=== PATIENT | female | born 1985 | race Hispanic/Latino ===

== ENCOUNTER 2017-12-12 20:01 | Emergency (ER) | payer OTHER ==
[2017-12-12 20:19] VITALS: TEMP 98.1
--- NOTE | 2017-12-12 20:40 | ED PDOC ---
Arrival/HPI - General Chief Complaint: High Blood Pressure Time Seen by Provider: 12/12/17 20:03 Historian: Patient - History of Present Illness Narrative History of Present Illness (Text): 12/12/17 20:33 32yo female with history of Preclamsia present with complaint of elevated BP at home. The by the beside states patient delivered through emergency C- section 4 days ago, secondary to Preclampsia. The states she was DC home with BP of 150's yesterday and it was 160 and 180 at home today. Notes that she also have edema of her b/l foot, which she had prior to delivery. Notes that patient came to the Emergency department for evaluation. Patient was not placed on any antihypertensive. She denies headache, dizziness, nausea, vomiting, visual changes, focal weakness, any other complaint. Past Medical History - Provider Review Nursing Documentation Reviewed: Yes - Psychiatric Hx Substance Use: No Family/Social History - Physician Review Nursing Documentation Reviewed: Yes Family/Social History: Unknown Family HX Smoking Status: n Hx Alcohol Use: No Hx Substance Use: No Allergies/Home Meds Allergies/Adverse Reactions: Allergies No Known Allergies Allergy (Verified 12/12/17 20:15) Home Medications: Home Meds Medication Instructions Recorded Confirmed No Known Home Med 12/12/17 12/12/17 Review of Systems - Physician Review All systems were reviewed & negative as marked: Yes - Review of Systems Constitutional: Normal, Other (Elevated BP) Eyes: Normal ENT: Normal Respiratory: Normal Cardiovascular: Normal Gastrointestinal: Normal Genitourinary Female: Normal Musculoskeletal: Normal Skin: Normal Neurological: Normal Endocrine: Normal Hemo/Lymphatic: Normal Psychiatric: Normal Physical Exam Vital Signs Reviewed: Yes Vital Signs Temp Pulse Resp BP Pulse Ox 12/12/17 21:36 58 L 14 156/92 H 100 12/12/17 20:10 98.1 F 61 18 156/84 H 97 Temperature: Afebrile Blood Pressure: Normal Pulse: Regular Respiratory Rate: Normal Appearance: Positive for: Well-Appearing, Non-Toxic, Comfortable Pain Distress: None Mental Status: Positive for: Alert and Oriented X 3 - Systems Exam Head: Present: Atraumatic, Normocephalic Pupils: Present: PERRL Extroacular Muscles: Present: EOMI Conjunctiva: Present: Normal Mouth: Present: Moist Mucous Membranes Neck: Present: Normal Range of Motion Respiratory/Chest: Present: Clear to Auscultation, Good Air Exchange. No: Respiratory Distress, Accessory Muscle Use Cardiovascular: Present: Regular Rate and Rhythm, Normal S1, S2. No: Murmurs Abdomen: Present: Normal Bowel Sounds. No: Tenderness, Distention, Peritoneal Signs Back: Present: Normal Inspection Upper Extremity: Present: Normal Inspection. No: Cyanosis, Edema Lower Extremity: Present: Edema (3+ bipedal edema) Neurological: Present: GCS=15, CN II-XII Intact, Speech Normal Skin: Present: Warm, Dry, Normal Color. No: Rashes Psychiatric: Present: Alert, Oriented x 3, Normal Insight, Normal Concentration Medical Decision Making ED Course and Treatment: 12/12/17 21:17 PT in Emergency department for stated history. Her BP on re evaluation is 156/92 Urinalysis show protein of 30. this result was DW the pt. the states the protein was greater than 300 when she had the preclampsia. She was offered antihypertensive, but she declined the medication. Stating she don't have any symptoms. She was Advised to reduce salt intake and keep legs elevated. She was advised to f/u with her PMD. States she will she her PMD on Thursday. - Lab Interpretations Lab Results: Lab Results 12/12/17 20:52: Urine Color Yellow, Urine Appearance Clear, Urine pH 6.0, Ur Specific [place] 1.020, Urine Protein 30 H, Urine Glucose (UA) Negative, Urine Ketones Negative, Urine Blood Large H, Urine Nitrate Negative, Urine Bilirubin Negative, Urine Urobilinogen 0.2, Ur Leukocyte Esterase Negative, Urine RBC 20 - 25, Urine WBC 1 - 3, Ur Epithelial Cells 4 - 5, Amorphous Sediment Few, Urine Bacteria Many, Urine Other Fiber Disposition/Present on Arrival - Present on Arrival Any Indicators Present on Arrival: No History of DVT/PE: No History of Uncontrolled Diabetes: No Urinary Catheter: No History of Decub. Ulcer: No History Surgical Site Infection Following: None - Disposition Have Diagnosis and Disposition been Completed?: Yes Diagnosis: Hypertension Disposition: HOME/ ROUTINE Disposition Time: 21:30 Patient Plan: Discharge Condition: STABLE Discharge Instructions (ExitCare): High Blood Pressure in Adults, Low Salt Diet Additional Instructions: Follow up with your Doctor on Thursday Return to Emergency department for any new or worsening symptoms Referrals: Leigh Stone MD [Primary Care Provider] - Follow up with primary Forms: [employer] (Croatian)
[2017-12-12 21:06] LABS: URINE BILIRUBIN NEGATIVE (NEGATIVE); URINE BLOOD LARGE (NEGATIVE); URINE GLUCOSE (UA) NEGATIVE (NEGATIVE); URINE LEUKOCYTE ESTERASE NEGATIVE Leu/uL (NEGATIVE); URINE NITRATE NEGATIVE (NEGATIVE); URINE PROTEIN 30 mg/dL (<30 mg/dL); URINE UROBILINOGEN 0.2 E.U./dL (<1 E.U./dL)
[2017-12-12 21:07] LABS: URINE APPEARANCE CLEAR (CLEAR); URINE COLOR YELLOW (YELLOW)
[2017-12-12 21:27] LABS: URINE BACTERIA MANY (NEG); URINE RBC 20 - 25 /hpf (0-2)
[2017-12-12 21:28] LABS: URINE AMORPHOUS SEDIMENT FEW
[2017-12-12 21:36] VITALS: BP 156/92; PULSE 58; RESP 14; O2SAT 100
== END 2017-12-12 21:45 | disposition home or self-care (01) ==
LOC: MERGE 20:01 → ED 20:01
DX: I10 Essential (primary) hypertension (principal)